=== PATIENT | male | born 1960 | race Caucasian/White ===

== ENCOUNTER 2024-01-21 13:45 | Emergency (ER) | payer OTHER, BC ==
[2024-01-21 14:35] VITALS: RESP 18; TEMP 98.8; BMI 253.9
[2024-01-21 16:40] LABS: BASO % 0.7 % (0-2.0); EOS % 1.3 % (0-4.5); HEMATOCRIT 25.7 % (35.4-49); HEMOGLOBIN 8.6 GM/dL (11.7-16.9); LYMPH % 9.2 % (8-40); MCH 26.8 pg (25.7-33.7); MCHC 33.6 g/dl (32.0-35.9); MEAN CELL VOLUME 79.6 fl (80-96); MEAN PLT VOLUME 8.2 fl (7.5-11.1); MONO % 11.5 % (3.8-10.2); NEUT % 77.3 % (42.8-82.8); PLATELET COUNT 478 10^3/uL (134-434); RBC 3.22 M/mm3 (4.00-5.60); RDW 16.8 % (11.9-15.9)
[2024-01-21 16:45] LABS: INR 1.18 (0.83-1.09); PROTHROMBIN TIME (PATIENT) 13.7 SEC (9.7-13.0)
[2024-01-21 16:46] LABS: VENOUS BASE EXCESS 5.6 mmol/L (-2-2); VENOUS PCO2 40.7 mmHg (38-52); VENOUS PH 7.48 (7.310-7.410)
[2024-01-21 16:48] LABS: ACTIVATED PTT 21.4 SECONDS (25.2-36.5)
[2024-01-21 17:04] LABS: POTASSIUM 4.4 mmol/L (3.5-5.1)
[2024-01-21 17:06] LABS: CALCIUM 9.3 mg/dL (8.5-10.1)
[2024-01-21 17:07] LABS: ALBUMIN 2.6 g/dl (3.4-5.0); BLOOD UREA NITROGEN 28.4 mg/dL (7-18); MAGNESIUM 2.3 mg/dL (1.8-2.4)
[2024-01-21 17:10] LABS: CREATININE 0.8 mg/dL (0.55-1.3)
[2024-01-21 17:12] LABS: BILIRUBIN,TOTAL 0.3 mg/dL (0.2-1); TOT PROT 7.7 g/dl (6.4-8.2)
[2024-01-21 18:26] VITALS: BP 94/62; PULSE 60
== END 2024-01-21 18:38 | disposition short-term general hospital (02) ==
LOC: JER 13:45
DX: L76.22 Postprocedural hemorrhage of skin and subcutaneous tissue following other procedure (principal); Z20.822 Contact with and (suspected) exposure to COVID-19
CPT/HCPCS: 0241U-QW; 36415; 71045-TC-FY; 80053; 82803; 83735; 85025; 85610; 85730; 86850; 86900; 86901; 87040; 93005; 93010; 99285-25

== ENCOUNTER 2024-02-13 13:49 | Emergency (ER) | payer OTHER, BC ==
[2024-02-13 14:42] VITALS: TEMP 98.9; BMI 25.5
[2024-02-13 15:29] LABS: BASO % 0.6 % (0-2.0); EOS % 0.6 % (0-4.5); HEMATOCRIT 22.2 % (35.4-49); LYMPH % 5.3 % (8-40); MCH 24.8 pg (25.7-33.7); MCHC 31.6 g/dl (32.0-35.9); MEAN CELL VOLUME 78.4 fl (80-96); MEAN PLT VOLUME 7.6 fl (7.5-11.1); MONO % 4.4 % (3.8-10.2); NEUT % 89.1 % (42.8-82.8); PLATELET COUNT 654 10^3/uL (134-434); RBC 2.83 M/mm3 (4.00-5.60); RDW 16.7 % (11.9-15.9); WHITE BLOOD COUNT 12.6 K/mm3 (4.0-10.0)
[2024-02-13 15:38] LABS: INR 1.1 (0.83-1.09); PROTHROMBIN TIME (PATIENT) 12.8 SEC (9.7-13.0)
[2024-02-13 15:47] LABS: ACTIVATED PTT 27.1 SECONDS (25.2-36.5)
[2024-02-13 15:56] LABS: POTASSIUM 4.5 mmol/L (3.5-5.1)
[2024-02-13 15:58] LABS: ALBUMIN 2.2 g/dl (3.4-5.0); BLOOD UREA NITROGEN 34.8 mg/dL (7-18); CALCIUM 8.8 mg/dL (8.5-10.1)
[2024-02-13 16:03] LABS: CREATININE 0.7 mg/dL (0.55-1.3)
[2024-02-13 16:04] LABS: BILIRUBIN,TOTAL 0.3 mg/dL (0.2-1); TOT PROT 6.5 g/dl (6.4-8.2)
[2024-02-13 18:00] VITALS: BP 110/62; PULSE 74; RESP 22
== END 2024-02-13 18:00 | disposition short-term general hospital (02) ==
LOC: JER 13:49
DX: L76.22 Postprocedural hemorrhage of skin and subcutaneous tissue following other procedure (principal)
CPT/HCPCS: 36415; 80053; 85025; 85610; 85730; 86850; 86900; 86901; 93005; 93010; 99285-25

== ENCOUNTER 2024-03-02 07:52 | Emergency (ER) | payer OTHER, BC ==
[2024-03-02 08:37] VITALS: BMI 16.0
[2024-03-02 08:48] LABS: BASO % 0.4 % (0-2.0); EOS % 0.7 % (0-4.5); HEMATOCRIT 24.1 % (35.4-49); HEMOGLOBIN 7.6 GM/dL (11.7-16.9); MCH 26.5 pg (25.7-33.7); MCHC 31.7 g/dl (32.0-35.9); MEAN CELL VOLUME 83.5 fl (80-96); MEAN PLT VOLUME 7.9 fl (7.5-11.1); MONO % 5.8 % (3.8-10.2); NEUT % 88.1 % (42.8-82.8); PLATELET COUNT 692 10^3/uL (134-434); RBC 2.89 M/mm3 (4.00-5.60); RDW 19.3 % (11.9-15.9); WHITE BLOOD COUNT 12.8 K/mm3 (4.0-10.0)
[2024-03-02 08:52] LABS: EPI CELLS 4 /uL (0-25.1); HYALINE CASTS 1 /uL (0-3.1); PH,URINE 7.5 (5.0-8.0); URINE APPEARANCE CLOUDY; URINE BACTERIA >9,000 /uL (0-1359); URINE BILIRUBIN NEGATIVE (NEGATIVE); URINE COLOR YELLOW; URINE GLUCOSE (UA) NEGATIVE (NEGATIVE); URINE KETONE NEGATIVE (NEGATIVE); URINE LEUK ESTERASE 3+ (NEGATIVE); URINE NITRITE NEGATIVE (NEGATIVE); URINE PROTEIN TRACE (NEGATIVE); URINE RBC 24 /uL (0-23.9); URINE UROBILINOGEN 0.2 mg/dL (0.2-1.0); URINE WBC 1124 /uL (0-25.8)
[2024-03-02 09:05] LABS: *STOOL FOR OCCULT BLOOD POSITIVE (NEGATIVE)
[2024-03-02] MEDS ORDERED: CEFTRIAXONE 1 GM/50 ML BAG ONE (09:13)
[2024-03-02 09:32] LABS: POTASSIUM 4.1 mmol/L (3.5-5.1)
[2024-03-02 09:34] LABS: CALCIUM 8.7 mg/dL (8.5-10.1)
[2024-03-02 09:35] LABS: ALBUMIN 2.2 g/dl (3.4-5.0); BLOOD UREA NITROGEN 35.2 mg/dL (7-18)
[2024-03-02 09:38] LABS: CREATININE 0.7 mg/dL (0.55-1.3)
[2024-03-02 09:39] LABS: BILIRUBIN,TOTAL 0.2 mg/dL (0.2-1); TOT PROT 7.1 g/dl (6.4-8.2)
[2024-03-02] MEDS: HYDROmorphone HCL 2 MG TABLET PEG ONE (10:45)
[2024-03-02] MEDS ORDERED: HYDROmorphone HCL 2 MG TABLET ONE (10:58)
[2024-03-02 14:25] LABS: HEMATOCRIT 23.9 % (35.4-49); HEMOGLOBIN 7.7 GM/dL (11.7-16.9); MCH 27.2 pg (25.7-33.7); MCHC 32.2 g/dl (32.0-35.9); MEAN CELL VOLUME 84.7 fl (80-96); MEAN PLT VOLUME 7.7 fl (7.5-11.1); PLATELET COUNT 562 10^3/uL (134-434); RBC 2.82 M/mm3 (4.00-5.60); RDW 19.2 % (11.9-15.9); WHITE BLOOD COUNT 16.7 K/mm3 (4.0-10.0)
[2024-03-02 15:57] VITALS: TEMP 102
[2024-03-02] MEDS ORDERED: VANCOMYCIN 1 GRAM (PRE-DOCKED) 1,000 MG/250 ML BAG IVPB ONE (16:24)
[2024-03-02] MEDS ORDERED: ACETAMINOPHEN INJECTION 100 ML IVPB ONE (16:29)
[2024-03-02] MEDS: VANCOMYCIN 1,000 MG in DEXTROSE 5%-WATER - 250 ML IVPB ONE (16:38)
[2024-03-02] MEDS: LACTATED RINGERS SOLUTION 1000 ML INFUS.BAG IV ONE ×2 (16:38→17:40)
[2024-03-02] MEDS: ACETAMINOPHEN 1000 MG/100 ML BAG IVPB ONE (16:38)
[2024-03-02 17:29] VITALS: BP 103/64
[2024-03-02 17:39] VITALS: PULSE 120; RESP 28
[2024-03-02] MEDS: MIDODRINE HCL 5 MG TABLET PO ONE (17:40)
[2024-03-02] MEDS: SODIUM CHLORIDE 0.9% 500 ML INFUS.BAG IV ONE (17:43)
== END 2024-03-02 17:43 | disposition short-term general hospital (02) ==
LOC: JER 07:52
PROC: 3E03329 Introduction of Other Anti-infective into Peripheral Vein, Percutaneous Approach (ICD-10-PCS; principal; 2024-03-02)
PROC: 3E03329 Introduction of Other Anti-infective into Peripheral Vein, Percutaneous Approach (ICD-10-PCS; 2024-03-02)
PROC: 3E033NZ Introduction of Analgesics, Hypnotics, Sedatives into Peripheral Vein, Percutaneous Approach (ICD-10-PCS; 2024-03-02)
DX: D64.9 Anemia, unspecified (principal); R04.1 Hemorrhage from throat; Z93.0 Tracheostomy status; Z20.822 Contact with and (suspected) exposure to COVID-19
CPT/HCPCS: 0241U-QW; 36415; 36430; 71045-TC-FY; 80053; 81003; 82272; 85025; 85027; 86850; 86900; 86901; 86922; 87086; 87186; 93005; 93010; 99285-25; J0131; P9058